=== PATIENT | female | born 1995 | race Caucasian/White ===

== ENCOUNTER 2016-07-09 07:01 | Emergency (ER) | payer BC, OTHER ==
[2016-07-09 07:11] VITALS: BP 136/54
--- NOTE | 2016-07-09 07:21 | UC ---
Throat Pain/Nasal Sundeep HPI - HPI Summary HPI Summary: NASAL CONGESTION X 1 DAY, + SORE THROAT, COUGH, NO FEVER, NO CHILLS BILATERAL EYE REDNESS WITH CLEAR DISCHARGE NO EYE PAIN , NO CHANGE IN VISION - History of Current Complaint Chief Complaint: UCRespiratory Stated Complaint: FEVER CONGESTION EYE COMPLAINT Time Seen by Provider: 07/09/16 07:14 Hx Obtained From: Patient Hx Last Menstrual Period: 06/08/16 ?: No Onset/Duration: Gradual Onset, Lasting Days - 1, Still Present Severity: Moderate Cough: Nonproductive Associated Signs & Symptoms: Positive: Nasal Discharge. Negative: Dysphagia, FB Sensation, Drooling, Wheezing, Hoarseness, Sinus Discomfort, Fever, Rash - Allergies/Home Medications Allergies/Adverse Reactions: Allergies Allergy/AdvReac Type Severity Reaction Status Date / Time No Known Allergies Allergy Verified 07/09/16 07:06 PMH/Surg Hx/FS Hx/Imm Hx Previously Healthy: Yes - Surgical History Surgical History: Yes Surgery Procedure, Year, and Place: tonsilectomy - Family History Known Family History: Positive: None Negative: Diabetes - Social History Alcohol Use: Occasionally Substance Use Type: None Smoking Status (MU): Never Smoked Tobacco - Immunization History Most Recent Influenza Vaccination: HAS NEVER RECIEVED Review of Systems Constitutional: Negative Skin: Negative Eyes: Drainage, Eye Redness ENT: Sore Throat, Nasal Discharge Respiratory: Cough Cardiovascular: Negative Gastrointestinal: Negative Genitourinary: Negative All Other Systems Reviewed And Are Negative: Yes Physical Exam Triage Information Reviewed: Yes Appearance: Well-Appearing, No Pain Distress, Well-Nourished Vital Signs: Initial Vital Signs Temp 96.6 F 07/09/16 07:08 Pulse 85 07/09/16 07:08 Resp 16 07/09/16 07:08 BP 136/54 07/09/16 07:08 Pulse Ox 100 07/09/16 07:08 Vital Signs Reviewed: Yes Eyes: Positive: Conjunctiva Clear ENT: Positive: Normal ENT inspection, Hearing grossly normal, Pharyngeal erythema, Nasal congestion, Nasal drainage, TMs normal Neck: Positive: Supple, Nontender, No Lymphadenopathy Respiratory: Positive: Chest non-tender, Lungs clear, Normal breath sounds Cardiovascular: Positive: RRR, No Murmur, Pulses Normal Skin Exam: Normal Throat Pain/Nasal Course/Dx - Differential Dx/Diagnosis Provider Diagnoses: URI Discharge - Discharge Plan Condition: Stable Disposition: HOME Patient Education Materials: Upper Respiratory Infection (ED) Referrals: Non Staff,Doctor [Primary Care Provider] - If Needed
== END 2016-07-09 07:30 | disposition home or self-care (01) ==
LOC: UCCORT 07:01
DX: J06.9 Acute upper respiratory infection, unspecified (principal)
CPT/HCPCS: 99211; G0463

== ENCOUNTER 2016-07-10 19:00 | Emergency (ER) | payer BC ==
[2016-07-10 19:27] VITALS: BP 120/55
--- NOTE | 2016-07-10 19:51 | UC ---
Throat Pain/Nasal Sundeep HPI - HPI Summary HPI Summary: Patient has had 1 week of sinus pressure and fever, she has appointment in 3 weeks to get adenoids removed bilateral maxillary sinus pressure, did take Advil today 2 hours ago. - History of Current Complaint Chief Complaint: UCGeneralIllness Stated Complaint: FEVER Time Seen by Provider: 07/10/16 19:41 Hx Obtained From: Patient Hx Last Menstrual Period: 06/08/16 ?: No Onset/Duration: Sudden Onset, Lasting Days Severity: Severe Associated Signs & Symptoms: Positive: Sinus Discomfort, Nasal Discharge - Allergies/Home Medications Allergies/Adverse Reactions: Allergies Allergy/AdvReac Type Severity Reaction Status Date / Time No Known Allergies Allergy Verified 07/10/16 19:27 PMH/Surg Hx/FS Hx/Imm Hx Previously Healthy: Yes - Surgical History Surgical History: Yes Surgery Procedure, Year, and Place: tonsilectomy - Family History Known Family History: Positive: None Negative: Diabetes - Social History Alcohol Use: Occasionally Substance Use Type: None Smoking Status (MU): Never Smoked Tobacco - Immunization History Most Recent Influenza Vaccination: HAS NEVER RECIEVED Review of Systems Constitutional: Fever, Chills Skin: Negative Eyes: Eye Redness ENT: Ear Ache, Nasal Discharge Cardiovascular: Negative Gastrointestinal: Negative Genitourinary: Negative Motor: Negative Neurovascular: Negative Musculoskeletal: Negative Neurological: Headache Psychological: Negative All Other Systems Reviewed And Are Negative: Yes Physical Exam Triage Information Reviewed: Yes Appearance: Well-Nourished, Ill-Appearing, Pain Distress Vital Signs: Initial Vital Signs Temp 99.0 F 07/10/16 19:24 Pulse 84 07/10/16 19:24 Resp 18 07/10/16 19:24 BP 120/55 07/10/16 19:24 Pulse Ox 98 07/10/16 19:24 Vital Signs Reviewed: Yes Eye Exam: Normal Eyes: Positive: Conjunctiva Inflamed ENT: Positive: Pharyngeal erythema, Nasal congestion, Nasal drainage, TM bulging , TM red, Tonsillar swelling Dental Exam: Normal Neck exam: Normal Neck: Positive: Supple, Nontender, No Lymphadenopathy Respiratory Exam: Normal Respiratory: Positive: Chest non-tender, Lungs clear, Normal breath sounds Cardiovascular Exam: Normal Cardiovascular: Positive: RRR, No Murmur, Pulses Normal Abdominal Exam: Normal Abdomen Description: Positive: Nontender, No Organomegaly, Soft Bowel Sounds: Positive: Present Musculoskeletal Exam: Normal Musculoskeletal: Positive: Strength Intact, ROM Intact, No Edema Neurological Exam: Normal Neurological: Positive: Alert, Muscle Tone Normal Psychological Exam: Normal Skin Exam: Normal Throat Pain/Nasal Course/Dx - Course Course Of Treatment: hx obtained, exam performed, meds reviewed, treated for sinusitis, recommend follow up with her ENT in the next week due to up coming surgery - Differential Dx/Diagnosis Differential Diagnosis/HQI/PQRI: Influenza, Laryngitis, Pharyngitis, Sinusitis, URI Provider Diagnoses: sinusitis Discharge - Discharge Plan Condition: Stable Disposition: HOME Prescriptions: Amoxicillin/Clavulanate TAB* [Augmentin TAB 875*] 875 mg PO BID #20 tab Patient Education Materials: Sinusitis (ED) Referrals: Non Staff,Doctor [Primary Care Provider] - Additional Instructions: 1. Take the medication as prescribed. 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 increase your fluid intake and get plenty of rest. 4. Tylenol and Ibuprofen for fever and pain.
== END 2016-07-10 19:57 | disposition home or self-care (01) ==
LOC: UCCORT 19:00
DX: J32.9 Chronic sinusitis, unspecified (principal)
CPT/HCPCS: 99212; G0463

== ENCOUNTER 2017-02-05 07:02 | Emergency (ER) | payer BC ==
--- NOTE | 2017-02-05 07:08 | UC ---
Throat Pain/Nasal Sundeep HPI - HPI Summary HPI Summary: 21 year old female presents with sore throat with exposure to strep. - History of Current Complaint Stated Complaint: SORE THROAT Time Seen by Provider: 02/05/17 07:07 Hx Obtained From: Patient Hx Last Menstrual Period: 06/08/16 Onset/Duration: Sudden Onset Severity: Moderate - Allergies/Home Medications Allergies/Adverse Reactions: Allergies Allergy/AdvReac Type Severity Reaction Status Date / Time No Known Allergies Allergy Verified 02/05/17 07:07 Home Medications: Home Medications Acetaminophen [Acetaminophen Extra Stren] 1,000 mg PO Q6H PRN 02/05/17 [History Confirmed 02/05/17] PMH/Surg Hx/FS Hx/Imm Hx Previously Healthy: Yes - Surgical History Surgical History: Yes Surgery Procedure, Year, and Place: tonsilectomy - Family History Known Family History: Positive: None Negative: Diabetes - Social History Alcohol Use: Occasionally Substance Use Type: None Smoking Status (MU): Never Smoked Tobacco - Immunization History Most Recent Influenza Vaccination: HAS NEVER RECIEVED Review of Systems Constitutional: Negative Skin: Negative Eyes: Negative ENT: Sore Throat, Nasal Discharge, Sinus Congestion, Sinus Pain/Tenderness Respiratory: Negative Cardiovascular: Negative Gastrointestinal: Negative Genitourinary: Negative Motor: Negative Neurovascular: Negative Musculoskeletal: Negative Neurological: Negative Psychological: Negative All Other Systems Reviewed And Are Negative: Yes Physical Exam Triage Information Reviewed: Yes Vital Signs Reviewed: Yes Eye Exam: Normal ENT: Positive: Pharyngeal erythema, Nasal congestion, Nasal drainage, Sinus tenderness Dental Exam: Normal Neck exam: Normal Neck: Positive: 1 Respiratory Exam: Normal Cardiovascular Exam: Normal Abdominal Exam: Normal Musculoskeletal Exam: Normal Neurological Exam: Normal Psychological Exam: Normal Skin Exam: Normal Throat Pain/Nasal Course/Dx - Differential Dx/Diagnosis Provider Diagnoses: strep throat Discharge - Discharge Plan Condition: Stable Disposition: HOME Prescriptions: Amoxicillin/Clavulanate TAB* [Augmentin TAB 875*] 875 mg PO BID #20 tab Magic M W2 Ray/Maal/Nyst/Lido* 5 ml SWISH SPIT QID PRN #120 ml PRN Reason: Pain Methylprednisolone [Medrol Dosepak 4 MG*] 4 mg PO .SEE ENMA INSTRUCTION #21 tab Patient Education Materials: Pharyngitis (ED) Forms: *School Release Referrals: Non Staff,Doctor [Primary Care Provider] -
[2017-02-05 07:29] VITALS: BP 120/69
== END 2017-02-05 07:32 | disposition home or self-care (01) ==
LOC: UCCORT 07:02
DX: J02.0 Streptococcal pharyngitis (principal)
CPT/HCPCS: 87651; 99212; G0463

== ENCOUNTER 2017-05-05 10:45 | Emergency (ER) | payer BC ==
--- NOTE | 2017-05-05 13:35 | UC ---
Upper Extremity HPI - HPI Summary HPI Summary: fell last night onto right hand - pinky finger swollen, and tender to touch - can move it but not very much. etoh involved doesnt remember what happened. took otc analgesic with little relief. - History of Current Complaint Chief Complaint: UCUpperExtremity Stated Complaint: RT HAND PINKY FINGER INJURY Time Seen by Provider: 05/05/17 13:28 Hx Obtained From: Patient Hx Last Menstrual Period: 04/13/17 ?: No Onset/Duration: Sudden Onset Severity Initially: Moderate Severity Currently: Moderate Pain Intensity: 8 Character: Sharp, Throbbing Aggravating Factor(s): Movement, Lifting, Flexion, Extension Alleviating Factor(s): Nothing Associated Signs And Symptoms: Positive: Swelling, Bruising - Allergies/Home Medications Allergies/Adverse Reactions: Allergies Allergy/AdvReac Type Severity Reaction Status Date / Time No Known Allergies Allergy Verified 05/05/17 13:06 PMH/Surg Hx/FS Hx/Imm Hx Previously Healthy: Yes - Surgical History Surgical History: Yes Surgery Procedure, Year, and Place: tonsilectomy - Family History Known Family History: Positive: None Negative: Diabetes - Social History Alcohol Use: Occasionally Substance Use Type: None Smoking Status (MU): Never Smoked Tobacco - Immunization History Most Recent Influenza Vaccination: HAS NEVER RECIEVED Review of Systems Constitutional: Negative Skin: Negative Eyes: Negative ENT: Negative Respiratory: Negative Cardiovascular: Negative Gastrointestinal: Negative Genitourinary: Negative Musculoskeletal: Decreased ROM - right hand - pinky finger Neurological: Negative Psychological: Anxious Is Patient Immunocompromised?: No All Other Systems Reviewed And Are Negative: Yes Physical Exam Triage Information Reviewed: Yes Appearance: Pain Distress - right hand Vital Signs: Initial Vital Signs Temp 98.2 F 05/05/17 13:07 Pulse 75 05/05/17 13:07 Resp 18 05/05/17 13:07 BP 123/72 05/05/17 13:07 Pulse Ox 100 05/05/17 13:07 Vital Signs Reviewed: Yes Eye Exam: Normal Musculoskeletal: Positive: ROM Limited @ - right pinky finger Neurological Exam: Normal Psychological Exam: Normal Skin Exam: Normal Upper Extremity Course/Dx - Course Course Of Treatment: xray - right hand - results negative for fx. pinky splint applied. RICE. f/u if symptoms not resolving - Differential Dx/Diagnosis Differential Diagnosis/HQI/PQRI: Strain, Sprain Provider Diagnoses: right pinky sprain Discharge - Discharge Plan Condition: Good Disposition: HOME Patient Education Materials: Finger Sprain (ED) Referrals: Non Staff,Doctor [Primary Care Provider] - 1 Week MERA DELGADO [, APPLICATION, OTHER] -
[2017-05-05 14:16] VITALS: BP 132/66
--- NOTE | 2017-05-05 14:37 | RAD ---
Indication: Right hand pain. 3 views of the right hand demonstrates no fracture. No other bone or joint abnormality is identified. IMPRESSION: No fracture of the right hand is noted.
== END 2017-05-05 14:56 | disposition home or self-care (01) ==
LOC: UCCORT 10:45
DX: S63.616A Unspecified sprain of right little finger, initial encounter (principal); W19.XXXA Unspecified fall, initial encounter; Y93.9 Activity, unspecified; Y92.9 Unspecified place or not applicable
CPT/HCPCS: 99212; G0463

== ENCOUNTER 2018-05-08 08:27 | Emergency (ER) | payer BC ==
[2018-05-08 09:13] VITALS: BP 111/73
--- NOTE | 2018-05-08 09:36 | UC ---
Skin Complaint HPI - HPI Summary HPI Summary: Ms. Sahni presented with a concern that she has scabies. She's had a rash for several nights in a row. She's been itching constantly during the day on her arms and legs but the rash seems to come out at night. She has pictures of an erythematous, possibly raised, confluent rash on her arms and legs. It's it is come out after showering also. Several people in her house have been developing a similar rash in the last few days. - History of Current Complaint Chief Complaint: UCRash Time Seen by Provider: 05/08/18 09:24 Stated Complaint: SKIN COMPLAINT Hx Obtained From: Patient Hx Last Menstrual Period: 03/14/18 ?: No - LMP 03/15 but she says she has lost a lot of weight recently Onset/Duration: Lasting Days Timing: Intermittent Episodes Lasting: Onset Severity: Mild Current Severity: Moderate Pain Intensity: 0 Location: Diffuse Aggravating Factor(s): Showering Alleviating Factor(s): Nothing Associated Signs & Symptoms: Positive: Negative - Allergy/Home Medications Allergies/Adverse Reactions: Allergies Allergy/AdvReac Type Severity Reaction Status Date / Time No Known Allergies Allergy Verified 05/08/18 09:07 Home Medications: Home Medications Multivitamins/Minerals TAB* [Theragran/minerals TAB*] 1 tab PO DAILY 05/08/18 [ History Confirmed 05/08/18] diPHENhydraMINE PO* [Benadryl PO 25 MG TAB*] 25 mg PO Q6H PRN 05/08/18 [History Confirmed 05/08/18] PMH/Surg Hx/FS Hx/Imm Hx Previously Healthy: Yes - Surgical History Surgical History: Yes Surgery Procedure, Year, and Place: tonsilectomy - Family History Known Family History: Positive: None Negative: Diabetes - Social History Alcohol Use: Occasionally Substance Use Type: None Smoking Status (MU): Never Smoked Tobacco - Immunization History Most Recent Influenza Vaccination: HAS NEVER RECIEVED Review of Systems All Other Systems Reviewed And Are Negative: Yes Constitutional: Positive: Negative Skin: Positive: Rash ENT: Positive: Negative Respiratory: Positive: Negative Physical Exam - Summary Physical Exam Summary: She is nontoxic in appearance with stable vital signs. No rashes seen at this time. Triage Information Reviewed: Yes Appearance: Well-Appearing, Thin Vital Signs: Initial Vital Signs Temp 97.3 F 05/08/18 09:08 Pulse 58 05/08/18 09:08 Resp 15 05/08/18 09:08 BP 111/73 05/08/18 09:08 Pulse Ox 100 05/08/18 09:08 Vital Signs Reviewed: Yes Eyes: Positive: Conjunctiva Clear ENT: Positive: Normal ENT inspection Neck exam: Normal Respiratory Exam: Normal Cardiovascular Exam: Normal Skin Exam: Normal Course/Dx - Course Course Of Treatment: She wants to be treated for scabies. Frankly I'm not sure what is causing the rash.It is very unusual and is not in the typical distribution. I will go ahead and treat her for scabies and have her follow-up. - Diagnoses Provider Diagnosis: Scabies exposure Discharge - Sign-Out/Discharge Documenting (check all that apply): Patient Departure All imaging exams completed and their final reports reviewed: No Studies - Discharge Plan Condition: Stable Disposition: HOME Patient Education Materials: Scabies (ED) Referrals: No Primary Care Phys,NOPCP [Primary Care Provider] - - Billing Disposition and Condition Condition: STABLE Disposition: Home
== END 2018-05-08 10:03 | disposition home or self-care (01) ==
LOC: UCCORT 08:27
DX: R21 Rash and other nonspecific skin eruption (principal); Z20.7 Contact with and (suspected) exposure to pediculosis, acariasis and other infestations
CPT/HCPCS: 84702; 99212; G0463